=== PATIENT | female | born 1970 | race African-American/Black ===

== ENCOUNTER 2017-06-07 10:56 | Emergency (ER) | payer SELFPAY ==
[2017-06-07 11:14] VITALS: BMI 31.7
[2017-06-07] MEDS ORDERED: CATAPRES TAB 0.1 MG PO ONE (11:18)
--- NOTE | 2017-06-07 11:24 | DR.CP ---
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 Patient states that this morning she took her blood pressure and it was high, did not take lisinopril. She also complains of being dizzy and headache. She took no medication prior to arrival for headache. She admits to a history of angina but takes any NTG. 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 She smokes 1/2 ppd for years; denies alcohol or drugs. She denies fever, vomiting or diarrhea. Chief Complaint:: PT STATES FOR THE PAST 3 DAYS HER BP HAS BEEN REALLY HIGH AND HER CHEST HAS BEEN HURTING ON HER LEFT SIDE OF HER CHEST AND HE NECK AND HER LEFT HAND PT STATES THE PAIN IS A DULL PAIN ..... 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 - Source History Provided: Patient - Mode of Arrival Mode of Arrival: Ambulatory - Timing Onset of Chief Complaint: 06/05/17 - Location Chest Pain Radiation Location: Left Arm, Left Hand - Associated Signs and Symptoms Associated Signs and Symptoms: None PMH - PMH Past Medical History: Yes Past Medical History: Angina, Arthritis, Hypertension Past Surgical History: Yes Surgical History: Hysterectomy, Other - Family History History of Family Medical Conditions: Yes Family Medical History: Hypertension - Social History Does patient currently use any type of tobacco product: Yes Have you used tobacco products in the last 12 months: Yes Type of Tobacco Use: Cigarettes How many years tobacco product used: 30 Does any household member use tobacco: No Do you use any recreational Drugs:: No Lives With: Family Lives Where: Home - infectious screening In the last 2 months have you had wt loss of >10#?: NO Have you had fever, night sweats or hemotysis?: No Have you traveled outside the country in the last 6 months?: No Isolation: Standard ROS - Review of Systems Constitutional: negative: Diaphoresis Eyes: No Symptoms Reported ENTM: No Symptoms Reported Respiratoy: No Symptoms Reported Cardiovascular: No Symptoms Reported Gastrointestinal/Abdominal: No Symptoms Reported Genitourinary: No Symptoms Reported Neurological: No Symptoms Reported Musculoskeletal: No Symptoms Reported Integumentary: No Symptoms Reported Hematologic/Lymphatic: No Symptoms Reported Endocrine: No Symptoms Reported Psychiatric: No Symptoms Reported All Other Systems: Reviewed and Negative PE - Vitals Vitals: Temperature 98.2 F Pulse Rate [Left Brachial] 58 Pulse Rate 70 Respiratory Rate 22 Blood Pressure [Left Arm] 153/100 Blood Pressure [Right Arm] 150/100 Blood Pressure 174/105 O2 Sat by Pulse Oximetry 100 - General Limitations: No Limitations General Appearance: Alert, In No Apparent Distress - Head Head Exam: Normal Inspection, Atraumatic - Eyes Eye exam: Normal Appearance, PERRL, EOMI - ENT ENT Exam: Normal Exam - Chest Chest Inspection: Normal Inspection, Tenderness (palpation at 2nd intercostal section) - Respiratory Respiratory Exam: Normal Lung Sounds Bilat Respiratory Exam: Bilateral Clear to Auscultation - Cardiovascular Cardiovascular Exam: Regular Rate, Normal Rhythm Pulse: Normal, Radial Edema: Normal - Abdominal Exam Abdominal Exam: Normal Inspection, Normal Bowel Sounds Abdominal Tenderness: negative: RUQ, RLQ, LUQ, LLQ, Epigastrium, Suprapubic, Diffuse, Mild, Moderate, Severe, Other - Extremities Extremities Exam: Normal Inspection, Full ROM - Back Back Exam: Normal Inspection, Full ROM - Neurologic Neurological Exam: Alert, Oriented X3, CN II-XII Intact - Psychiatric Psychiatric Exam: Normal Affect - Skin Skin Exam: Warm, Dry, Intact Course - Reevaluation 1st: Improved - Education/Counseling Educated On: Treatment, Diagnosis, Prognosis, Needs for Follow Up ROR - Labs Reviewed Result Diagrams: 06/07/17 11:20 06/07/17 11:20 Laboratory: WBC 6.3 X10^3/uL (3.6-10.0) 06/07/17 11:20 RBC 4.76 X10^6/uL (3.5-5.4) 06/07/17 11:20 Hgb 14.1 g/dL (12.0-16.0) 06/07/17 11:20 Hct 41.3 % (36.0-47.0) 06/07/17 11:20 MCV 86.8 fL (80.0-100.0) 06/07/17 11:20 MCH 29.7 pg (27.0-34.0) 06/07/17 11:20 MCHC 34.2 g/dL (33.0-35.0) 06/07/17 11:20 RDW 13.1 % (11.6-16.5) 06/07/17 11:20 Plt Count 162 X10^3/uL (150.0-450.0) 06/07/17 11:20 MPV 8.6 fL (7.4-11.0) 06/07/17 11:20 Neut % 65.2 % (42.0-75.0) 06/07/17 11:20 Lymph % 27.9 % (21.0-51.0) 06/07/17 11:20 [place] % 5.1 % (0.0-13.0) 06/07/17 11:20 Eos % 1.2 % (0.9-2.9) 06/07/17 11:20 Baso % 0.6 % (0.2-1.0) 06/07/17 11:20 Neut # 4.1 x10^3/uL (2.2-4.8) 06/07/17 11:20 Lymph # 1.8 X10^3/uL (1.3-2.9) 06/07/17 11:20 [place] # 0.3 x10^3/uL (0.3-0.8) 06/07/17 11:20 Eos # 0.1 x10^3/uL (0.0-0.2) 06/07/17 11:20 Baso # 0.0 X10^3/uL (0.0-0.1) 06/07/17 11:20 Absolute Nucleated RBC 0.0 /100WBC 06/07/17 11:20 INR Target Range - 06/07/17 11:20 INR 1.05 (0.8-1.3) 06/07/17 11:20 PTT 30.9 SECONDS (22.9-36.5) 06/07/17 11:20 PTT Comment - 06/07/17 11:20 D-Dimer 107 ng/mL (0-400) 06/07/17 11:20 Sodium 143 mmol/L (136-145) 06/07/17 11:20 Corrected Sodium TNP 06/07/17 11:20 Potassium 4.2 mmol/L (3.5-5.1) 06/07/17 11:20 Chloride 107 mmol/L (98-107) 06/07/17 11:20 Carbon Dioxide 28.3 mmol/L (21-32) 06/07/17 11:20 BUN 16 mg/dL (7-18) 06/07/17 11:20 Creatinine 0.94 mg/dL (0.55-1.02) 06/07/17 11:20 Est GFR (MDRD) Af Amer > 60 (>60) 06/07/17 11:20 Est GFR (MDRD) Non-Af > 60 (>60) 06/07/17 11:20 Glucose 96 mg/dL (65-99) 06/07/17 11:20 Calcium 9.6 mg/dL (8.5-10.1) 06/07/17 11:20 Corrected Calcium TNP 06/07/17 11:20 Magnesium 1.6 mg/dL (1.7-2.9) L 06/07/17 11:20 Total Bilirubin 0.30 mg/dL (0.2-1.0) 06/07/17 11:20 AST 16 Units/L (15-37) 06/07/17 11:20 ALT 17 Units/L (12-78) 06/07/17 11:20 Alkaline Phosphatase 100 Units/L (46-116) 06/07/17 11:20 Creatine Kinase 150 Units/L (26-192) 06/07/17 11:20 CK-MB (CK-2) < 1.0 ng/mL (0-4.0) 06/07/17 11:20 CK/CKMB % Calc 0.7 % (<4) 06/07/17 11:20 Troponin I < 0.02 ng/mL (0-1.5) 06/07/17 11:20 Total Protein 8.1 g/dL (6.4-8.2) 06/07/17 11:20 Albumin 3.4 g/dL (3.4-5.0) 06/07/17 11:20 Globulin 4.7 g/dL (2.5-4.5) H 06/07/17 11:20 Albumin/Globulin Ratio 0.7 Ratio (1.1-2.1) L 06/07/17 11:20 - XRAY XRAY Interpreted by: Self (Chest: rotated left, increased vishnu hilar markings but no definite infiltrate) - Diagnosis Discharge Problem: Costochondritis - Discharge Plan Condition: Stable - Follow ups/Referrals Follow ups/Referrals: DARIO ARSHAD [Primary Care Provider] - 3 days - Instructions Instructions: Smoking Cessation, Tips for Success, [id number]
[2017-06-07] MEDS ORDERED: CATAPRES TAB 0.1 MG ONE (11:35)
[2017-06-07 11:37] LABS: BASOPHILS % (AUTO) 0.6 % (0.2-1.0); EOSINOPHILS # (AUTO) 0.1 x10^3/uL (0.0-0.2); EOSINOPHILS % (AUTO) 1.2 % (0.9-2.9); HEMATOCRIT 41.3 % (36.0-47.0); HEMOGLOBIN 14.1 g/dL (12.0-16.0); LYMPHOCYTES # (AUTO) 1.8 X10^3/uL (1.3-2.9); LYMPHOCYTES % (AUTO) 27.9 % (21.0-51.0); MEAN CORPUSCULAR HEMOGLOBIN 29.7 pg (27.0-34.0); MEAN CORPUSCULAR HGB CONC 34.2 g/dL (33.0-35.0); MEAN CORPUSCULAR VOLUME 86.8 fL (80.0-100.0); MEAN PLATELET VOLUME 8.6 fL (7.4-11.0); MONOCYTES # (AUTO) 0.3 x10^3/uL (0.3-0.8); MONOCYTES % (AUTO) 5.1 % (0.0-13.0); NEUTROPHILS # (AUTO) 4.1 x10^3/uL (2.2-4.8); NEUTROPHILS % (AUTO) 65.2 % (42.0-75.0); PLATELET COUNT 162 X10^3/uL (150.0-450.0); RED BLOOD COUNT 4.76 X10^6/uL (3.5-5.4); RED CELL DISTRIBUTION WIDTH 13.1 % (11.6-16.5); WHITE BLOOD COUNT 6.3 X10^3/uL (3.6-10.0)
[2017-06-07] MEDS ORDERED: TORADOL 30 MG VIAL IVP ONE (11:51)
[2017-06-07] MEDS ORDERED: TORADOL 60 MG VIAL IM ONE (11:53)
[2017-06-07] MEDS ORDERED: TORADOL 60 MG VIAL ONE (11:54)
[2017-06-07 11:55] LABS: BLOOD UREA NITROGEN 16 mg/dL (7-18); CALCIUM 9.6 mg/dL (8.5-10.1); CARBON DIOXIDE 28.3 mmol/L (21-32); CHLORIDE 107 mmol/L (98-107); CREATININE 0.94 mg/dL (0.55-1.02); SODIUM 143 mmol/L (136-145); TROPONIN I < 0.02 ng/mL (0-1.5); eGFR BLACK RACES > 60 (>60); eGFR NON BLACK RACES > 60 (>60)
[2017-06-07 11:59] VITALS: BP 153/100
[2017-06-07 11:59] LABS: ALANINE AMINOTRANSFERASE 17 Units/L (12-78); ALBUMIN 3.4 g/dL (3.4-5.0); ALKALINE PHOSPHATASE 100 Units/L (46-116); ASPARTATE AMINO TRANSFERASE 16 Units/L (15-37); CREATINE KINASE 150 Units/L (26-192); CREATINE KINASE MB < 1.0 ng/mL (0-4.0); MAGNESIUM 1.6 mg/dL (1.7-2.9); TOTAL PROTEIN 8.1 g/dL (6.4-8.2)
[2017-06-07 12:04] LABS: CKMB % 0.7 % (<4)
--- NOTE | 2017-06-07 16:01 | RAD ---
HISTORY: Chest pain Study: Portable chest. Comparison: Chest x-ray dated October 17, 2015. Findings: The trachea is midline. The cardiac silhouette is unremarkable. No obvious focal consolidation, ple ural effusion, or pneumothorax.. The bony thorax is unremarkable. IMPRESSION: No acute cardiopulmonary disease. Reported By:
== END 2017-06-07 13:00 | disposition home or self-care (01) | DRG 206 ==
LOC: ER 10:56
DX: M94.0 Chondrocostal junction syndrome [Tietze] (principal)
CPT/HCPCS: 36415; 71010; 80053; 82550; 82553; 83735; 84484; 85025; 85378; 85610; 85730; 93005; 93010; 96372; 96374; 99282; 99283; 99285; J1885

== ENCOUNTER 2017-11-10 06:51 | Emergency (ER) | payer OTHER ==
[2017-11-10 06:56] VITALS: BP 178/114; BMI 37.4
--- NOTE | 2017-11-10 07:22 | DR.EXTPAIN ---
HPI - Time seen Time seen: 07:17 - PCP Primary Care Physician: nfd - Complaint/Symptoms Chief Complaint Doctor Comments: Patient treated for a cough earlier in the month. She states that the cough has gotten worse. Chief Complaint:: pt stated she has been coughing for a few weeks and this morning when she woke up she took a deep breath and her chest started hurting. - Source History Provided: Patient - Mode of arrival Mode of Arrival: Ambulatory - Timing Onset of Chief Complaint: 11/03/17 PMH - PMH Past Medical History: Yes Past Medical History: Angina, Arthritis, Hypertension Past Surgical History: Yes Surgical History: Hysterectomy, Other - Family History History of Family Medical Conditions: Yes Family Medical History: Hypertension - Social History Does patient currently use any type of tobacco product: Yes Have you used tobacco products in the last 12 months: Yes Type of Tobacco Use: Cigarettes How many years tobacco product used: 20 Does any household member use tobacco: Yes Alcohol Use: None Do you use any recreational Drugs:: No Lives With: Family Lives Where: Home - infectious screening In the last 2 months have you had wt loss of >10#?: NO Have you had fever, night sweats or hemotysis?: No Have you traveled outside the country in the last 6 months?: No Isolation: Standard ROS - Review of Systems Eyes: No Symptoms Reported ENTM: No Symptoms Reported Respiratoy: No Symptoms Reported Cardiovascular: No Symptoms Reported Gastrointestinal/Abdominal: No Symptoms Reported Genitourinary: No Symptoms Reported Neurological: No Symptoms Reported Musculoskeletal: No Symptoms Reported Integumentary: No Symptoms Reported Hematologic/Lymphatic: No Symptoms Reported Endocrine: No Symptoms Reported Psychiatric: No Symptoms Reported All Other Systems: Reviewed and Negative PE - Vital Signs Vitals: Temperature 97.2 F Pulse Rate 67 Respiratory Rate 16 Blood Pressure [Left Arm] 153/100 Blood Pressure [Right Arm] 150/100 Blood Pressure 178/114 O2 Sat by Pulse Oximetry 99 - General Limitations: No Limitations General Appearance: Alert, In No Apparent Distress - Head Head Exam: Normal Inspection, Atraumatic - Eyes Eye exam: Normal Appearance, PERRL, EOMI - ENT ENT Exam: Normal Exam, Other (Bilateral turbinates boggy and erythematous) - Neck Neck Exam: Normal Inspection - Chest Chest Inspection: Normal Inspection - Respiratory Respiratory Exam: Normal Lung Sounds Bilat Respiratory Exam: Bilateral Clear to Auscultation - Cardiovascular Cardiovascular Exam: Regular Rate, Normal Rhythm - Abdominal Exam Abdominal Exam: Normal Inspection Abdominal Tenderness: negative: RUQ, RLQ, LUQ, LLQ, Epigastrium, Suprapubic, Diffuse, Mild, Moderate, Severe, Other - Extremities Extremities Exam: Normal Inspection, Full ROM - Upper Extremities Shoulder Exam: Normal Inspection Arm Exam: Normal Inspection, Full ROM Elbow Exam: Normal Inspection Forearm Exam: Normal Inspection Hand Exam: Normal Inspection Neuromotor Exam: Normal Exam Neurosensory Exam: Normal Exam Hand Tendon Exam: Flexor Digitorium Profundus (Location) Upper Ext. Vascular Exam: Capillary Refill - Lower Extremities Hip/Pelvis Exam: Normal Inspection Upper Leg Exam: Normal Inspection Knee Exam: Normal Inspection Lower Leg Exam: Normal Inspection Ankle Exam: Normal Inspection, Full ROM Foot/Toe Exam: Normal Inspection, Full ROM Neurovascular/Tendon Exam: Normal Capillary Refill Gait Exam: Observed and Normal - Back Back Exam: Normal Inspection, Full ROM - Neurological Neurological Exam: Alert, Oriented X3, CN II-XII Intact - Psychiatric Psychiatric Exam: Normal Affect Course - Reevaluation 1st: Improved ROR - XRAY XRAY Interpreted by: Radiologist - Diagnosis Discharge Problem: Upper respiratory infection Qualifiers: URI type: unspecified viral URI Qualified Code(s): J06.9 - Acute upper respiratory infection, unspecified - Discharge Plan Condition: Stable - Follow ups/Referrals Follow ups/Referrals: NFD,None [Primary Care Provider] - 3 days - Instructions
[2017-11-10] MEDS ORDERED: DUONEB 0.5 MG/3 MG ONE (07:29)
[2017-11-10] MEDS ORDERED: DUONEB 0.5 MG/3 MG NEB SCH (07:30)
--- NOTE | 2017-11-10 07:33 | RAD ---
HISTORY: Cough, chest pain Study: Chest AP portable Comparison: 06/07/2017 Findings: The heart is within normal limits in size. The asher are normal. The lung stallings are clear. No pleural effusions are identified. The bony thorax is unremarkable. IMPRESSION: Lungs clear Reported By:
== END 2017-11-10 08:00 | disposition home or self-care (01) ==
LOC: ER 06:51
DX: J06.9 Acute upper respiratory infection, unspecified (principal)
CPT/HCPCS: 71045; 99282; J7620